=== PATIENT | female | born 1975 | race Two or more races ===

== ENCOUNTER 2022-02-08 08:26 | Outpatient (REF) | payer OTHER, SELFPAY ==
[2022-02-08 08:58] LABS: COVID-19 Test Negative (Negative); IDNOW Serial# 55D5AD1C
== END 2022-02-08 08:27 | disposition home or self-care (01) ==
LOC: HO.LAB 08:26
PROVIDERS: Visit Provider Internal Medicine
DX: Z20.822 Contact with and (suspected) exposure to COVID-19 (principal)
CPT/HCPCS: 87635; C9803